=== PATIENT | male | born 1990 | race Caucasian/White ===

== ENCOUNTER 2019-11-20 21:15 | Emergency (ER) | payer SELFPAY ==
[2019-11-20] MEDS ORDERED: Tetracaine HCl/PF 0.5% 4 ML Bottle EYEBOTH ONE (21:48)
[2019-11-20] MEDS ORDERED: Erythromycin Base 0.5% Ophth Oint 3.5 GM Tube EYELF ONE (22:07)
--- NOTE | 2019-11-20 22:15 | EDM.PDOC ---
ED HPI GENERAL MEDICAL PROBLEM - General Chief Complaint: ENT Problem Stated Complaint: L FOREIGN BODY EYE Time Seen by Provider: 11/20/19 21:43 Source of Information: Reports: Patient History Limitations: Reports: No Limitations - History of Present Illness INITIAL COMMENTS - FREE TEXT/NARRATIVE: Patient working on his car/lying under the car. Small FB fell into left eye. Tried flushing it for 10-15min but still feels like something is in there when he blinks. No vision changes. No other complaints. Left Eye Pain Score (Numeric/FACES): 5 - Related Data Allergies Allergy/AdvReac Type Severity Reaction Status Date / Time No Known Allergies Allergy Verified 11/20/19 21:23 Home Meds: Home Meds . [No Known Home Meds] 06/01/18 [History] Past Medical History - Past Health History Medical/Surgical History: Denies Medical/Surgical History Musculoskeletal History: Reports: Fracture, Other (See Below) Other Musculoskeletal History: Tuft Fracture left hand 4th digit (ring finger) Fall 2017 Psychiatric History: Reports: None Social & Family History - Tobacco Use Smoking Status *Q: Current Every Day Smoker Years of Tobacco use: 18 Packs/Tins Daily: 1 Used Tobacco, but Quit: No Second Hand Smoke Exposure: Yes - Caffeine Use Caffeine Use: Reports: Energy Drinks, Soda - Recreational Drug Use Recreational Drug Use: Yes Drug Use in Last 12 Months: Yes Recreational Drug Type: Reports: Marijuana/Hashish Recreational Drug Use Frequency: Daily ED ROS GENERAL - Review of Systems Review Of Systems: Comprehensive ROS is negative, except as noted in HPI. ED EXAM, GENERAL - Physical Exam Exam: See Below Exam Limited By: No Limitations General Appearance: Alert, WD/WN, No Apparent Distress Eye Exam: Left Eye: Conjunctival Injection (mild), Corneal Abrasion (mild abrasion noted inferiorly), Bilateral Eye: EOMI, PERRL, Other (20/25 vision bilaterally) Ears: Hearing Grossly Normal Nose: No: Nasal Deformity, Nasal Swelling, Nasal Drainage Throat/Mouth: Normal Lips, Normal Voice, No Airway Compromise Head: Atraumatic, Normocephalic Neck: Supple Respiratory/Chest: No Respiratory Distress Neurological: Alert, Oriented, CN II-XII Intact, Normal Cognition, Normal Gait Psychiatric: Normal Affect, Normal Mood Skin Exam: Warm, Dry, Normal Color Course - Vital Signs Last Recorded V/S: Last Vital Signs Temp 37.2 C 11/20/19 21:16 Pulse 96 11/20/19 21:16 Resp 16 11/20/19 21:16 BP 141/83 H 11/20/19 21:16 Pulse Ox 97 11/20/19 21:16 - Orders/Labs/Meds Orders: Active Orders 24 hr Category Date Time Status Erythromycin Base [Erythromycin 0.5% Ophth Oint] Med 11/20/19 22:07 Once 1 gm EYELF ONETIME ONE Meds: Medications Discontinued Medications Generic Name Dose Route Start Last Admin Trade Name Freq PRN Reason Stop Dose Admin Tetracaine HCl 1 ml 11/20/19 21:48 11/20/19 21:55 Tetracaine 0.5% Steri-Unit [place] EYEBOTH 11/20/19 21:49 2 drop ASDIRECTED ONE Administration - Re-Assessments/Exams Free Text/Narrative Re-Assessment/Exam: 11/20/19 22:12 Left eye numbed with Tetracaine. Fluorescein staining performed. Small abrasion noted inferior cornea. No fb noted to be imbedded in cornea/eye. No fb noted to be floating around eye. Will treat abrasion. Precautions reviewed. To see how eye feels over the next 24-36 hours. Would expect FB sensation/discomfort to resolve if this is simple abrasion. He is to return to the ER if symptoms do not completely resolve within that timeframe so that the eye can be rechecked. He is to return otherwise as needed PRN sudden worsening symptoms. E-mycin Opth instilled in left eye by nurse prior to discharge. Departure - Departure Time of Disposition: 22:15 Disposition: Home, Self-Care 01 Condition: Good Clinical Impression: Corneal abrasion, left Qualifiers: Encounter type: initial encounter Qualified Code(s): S05.02XA - Injury of conjunctiva and corneal abrasion without foreign body, left eye, initial encounter - Discharge Information *PRESCRIPTION DRUG MONITORING PROGRAM REVIEWED*: Not Applicable *COPY OF PRESCRIPTION DRUG MONITORING REPORT IN PATIENT [facility]ARR[facility]: Not Applicable Instructions: Eye Foreign Body, [id number], Corneal Abrasion, [id number] Referrals: PCP,None [Primary Care Provider] - Forms: ED Department Discharge Additional Instructions: Instill 1/4 inch strip of the eye ointment into the eye every 6 hours for the next several days. If this is simple corneal abrasion then things should improve pretty rapidly over the next 24-36 hours. If you have sudden worsening symptoms, or if symptoms have not gone away by Friday please get rechecked here at the ER. Feel free to call with any questions. Sepsis Event Note - Evaluation Sepsis Screening Result: No Definite Risk - Focused Exam Vital Signs: Vital Signs Temp Pulse Resp BP Pulse Ox 11/20/19 21:16 37.2 C 96 16 141/83 H 97 Date Exam was Performed: 11/20/19 Time Exam was Performed: 22:08 - My Orders Last 24 Hours: My Active Orders 11/20/19 22:07 Erythromycin Base [Erythromycin 0.5% Ophth Oint] 1 gm EYELF ONETIME ONE - Assessment/Plan Last 24 Hours: My Active Orders 11/20/19 22:07 Erythromycin Base [Erythromycin 0.5% Ophth Oint] 1 gm EYELF ONETIME ONE
== END 2019-11-20 22:30 | disposition home or self-care (01) ==
LOC: LL.ED 21:15
DX: S05.02XA Injury of conjunctiva and corneal abrasion without foreign body, left eye, initial encounter (principal); X58.XXXA Exposure to other specified factors, initial encounter; F17.210 Nicotine dependence, cigarettes, uncomplicated
CPT/HCPCS: 99283; A9270-GY